=== PATIENT | male | born 1990 | race Asian ===

== ENCOUNTER 2018-12-12 06:21 | Emergency (ER) | payer SELFPAY, OTHER ==
[2018-12-12] MEDS: LIDOCAINE 1% (MDV) 10 ML INJ INJ (06:41)
[2018-12-12] MEDS: CEFAZOLIN 1 GM INJ IM (09:09)
== END 2018-12-12 09:40 | disposition home or self-care (01) ==
LOC: E/R 06:21
DX: S01.81XA Laceration without foreign body of other part of head, initial encounter (principal); S02.612B Fracture of condylar process of left mandible, initial encounter for open fracture; S02.5XXA Fracture of tooth (traumatic), initial encounter for closed fracture; W18.39XA Other fall on same level, initial encounter; Y92.009 Unspecified place in unspecified non-institutional (private) residence as the place of occurrence of the external cause
CPT/HCPCS: 12013; 70450; 70486; 96374; 99285-25